=== PATIENT | male | born 1945 ===

== ENCOUNTER 2019-03-17 10:36 | Emergency (ER) | payer OTHER ==
[~2019-03-17] VITALS: Ht 175.3 cm; Wt 93.0 kg
[~2019-03-17 10:36] MED LIST: CRESTOR10 MG; PREVACID30 MG; TENORMIN25 MG; ZETIA10 MG
[2019-03-17] MEDS ORDERED: PEPCID AC20 MG PO (14:08)
[2019-03-17] MEDS ORDERED: TUSSIN DM SYRU118 ML PO (14:08)
[2019-03-17] MEDS ORDERED: OSEL75CA PO (14:08)
[2019-03-17] MEDS ORDERED: KETO10TA2 PO (14:08)
== END 2019-03-17 14:58 ==
LOC: ER 10:36
DX: J09.X2 Influenza due to identified novel influenza A virus with other respiratory manifestations (principal)